=== PATIENT | male | born 1945 | race Two or more races ===

== ENCOUNTER 2018-03-22 09:40 | Outpatient (CLI) | payer OTHER ==
[~2018-03-22] VITALS: Ht 175.3 cm; Wt 86.2 kg
== END 2018-03-22 10:05 | disposition home or self-care (01) ==
LOC: OFIC 805 09:40
DX: R42 Dizziness and giddiness (principal)

== ENCOUNTER 2018-05-14 12:22 | Outpatient (CLI) | payer OTHER | END 2018-05-14 14:50 | disposition home or self-care (01) | LOC: RAD 501 12:22 | DX: M25.462 Effusion, left knee (principal) ==

== ENCOUNTER → 2018-10-27 | Outpatient (CLI) | payer OTHER | END | disposition home or self-care (01) | LOC: RAD 501 09:17 | DX: M25.511 Pain in right shoulder (principal) ==

== ENCOUNTER → 2019-04-11 | Outpatient (CLI) | payer OTHER | END | disposition home or self-care (01) | LOC: TOM 08:37 | DX: K40.90 Unilateral inguinal hernia, without obstruction or gangrene, not specified as recurrent (principal); K44.9 Diaphragmatic hernia without obstruction or gangrene; R10.30 Lower abdominal pain, unspecified ==

== ENCOUNTER 2019-04-19 07:30 | Outpatient (CLI) | payer OTHER | END 2019-04-19 08:07 | disposition home or self-care (01) | LOC: LAB 07:30 | DX: R10.84 Generalized abdominal pain (principal); I10 Essential (primary) hypertension ==

== ENCOUNTER 2019-05-05 07:00 | Day surgery (SDC) | payer OTHER | END 2019-05-05 18:20 | disposition home or self-care (01) | LOC: CIR.AMB 07:00 | DX: K40.90 Unilateral inguinal hernia, without obstruction or gangrene, not specified as recurrent (principal) ==

== ENCOUNTER → 2020-01-04 | Outpatient (CLI) | payer OTHER | END | disposition home or self-care (01) | LOC: OFIC 805 09:36 | DX: H81.13 Benign paroxysmal vertigo, bilateral (principal) ==

== ENCOUNTER 2021-03-29 11:17 | Emergency (ER) | payer OTHER ==
[~2021-03-29] VITALS: Ht 175.3 cm; Wt 81.6 kg
== END 2021-03-29 18:04 | disposition home or self-care (01) ==
LOC: ER 11:17
DX: R53.1 Weakness (principal); R42 Dizziness and giddiness

== ENCOUNTER 2021-04-04 08:29 | Outpatient (CLI) | payer OTHER | END 2021-04-04 08:30 | disposition home or self-care (01) | LOC: NUCLEAR 08:29 | PROVIDERS: ATTEND Internal Medicine Cardiovascular Disease | DX: G45.1 Carotid artery syndrome (hemispheric) (principal); Z86.73 Personal history of transient ischemic attack (TIA), and cerebral infarction without residual deficits ==

== ENCOUNTER 2021-04-04 14:38 | Outpatient (CLI) | payer OTHER | END 2021-04-04 14:39 | disposition home or self-care (01) | LOC: RAD 14:38 | PROVIDERS: ATTEND Internal Medicine Cardiovascular Disease | DX: I10 Essential (primary) hypertension (principal) ==

== ENCOUNTER 2021-07-29 08:00 | Outpatient (CLI) | payer OTHER | END 2021-07-29 08:30 | disposition home or self-care (01) | LOC: PPH VACUNA 08:00 | PROVIDERS: ATTEND Emergency Medicine Pediatric Emergency Medicine | DX: Z23 Encounter for immunization (principal) ==

== ENCOUNTER 2022-06-10 08:20 | Outpatient (CLI) | payer OTHER | END 2022-06-10 08:26 | disposition home or self-care (01) | LOC: TOM 08:20 | PROVIDERS: ATTEND Internal Medicine Cardiovascular Disease | DX: R56.9 Unspecified convulsions (principal) ==

== ENCOUNTER 2023-02-16 08:15 | Outpatient (CLI) | payer OTHER | END 2023-02-16 08:24 | disposition home or self-care (01) | LOC: RAD 08:15 | DX: Z01.811 Encounter for preprocedural respiratory examination (principal); Z96.1 Presence of intraocular lens; H50.21 Vertical strabismus, right eye; H50.22 Vertical strabismus, left eye; H53.2 Diplopia ==

== ENCOUNTER 2023-05-04 08:31 | Outpatient (CLI) | payer OTHER | END 2023-05-04 08:46 | disposition home or self-care (01) | LOC: MRI 08:31 | DX: H50.22 Vertical strabismus, left eye (principal); H53.2 Diplopia; Z96.1 Presence of intraocular lens | CPT/HCPCS: 70543; Q9965 ==

== ENCOUNTER → 2023-09-21 | Outpatient (CLI) | payer OTHER | END | disposition home or self-care (01) | LOC: RAD 13:36 | PROVIDERS: ATTEND Internal Medicine Cardiovascular Disease | DX: M12.9 Arthropathy, unspecified (principal); M19.90 Unspecified osteoarthritis, unspecified site ==

== ENCOUNTER 2023-09-30 13:57 | Emergency (ER) | payer OTHER ==
[~2023-09-30] VITALS: Ht 175.3 cm; Wt 77.1 kg
[2023-09-30] MEDS ORDERED: TETANUS & DIPHTHERIA TOX,ADULT 0.5 ML VIAL IM STA (15:29)
== END 2023-09-30 16:09 | disposition home or self-care (01) ==
LOC: ER 13:57
DX: S61.051A Open bite of right thumb without damage to nail, initial encounter (principal); W54.0XXA Bitten by dog, initial encounter; Y93.89 Activity, other specified; Y92.89 Other specified places as the place of occurrence of the external cause